=== PATIENT | male | born 1975 | race Caucasian/White ===

== ENCOUNTER → 2021-08-18 08:09 | Outpatient (CLI) | payer OTHER, MEDICAID, SELFPAY ==
[2021-08-18 19:07] LABS: Add Manual Diff / Slide Review NO; Basophils Absolute Auto 0 /uL (0-100); Basophils Percent Auto 0.4 % (0-2); Eosinophils Absolute Auto 100 /uL (0-450); Eosinophils Percent Auto 0.9 % (2-4); Hematocrit 47.4 % (41-53); Hemoglobin 16.3 g/dL (13.5-17.5); Lymphocytes Absolute Auto 1700 /uL (1100-4500); Lymphocytes Percent Auto 17.3 % (25-40); Mean Corpuscular HGB Conc 34.3 % (30-36); Monocytes Absolute Auto 600 /uL (0-900); Monocytes Percent Auto 6.2 % (3-14); Neutrophils Absolute Auto 7300 /uL (1500-7000); Neutrophils Percent Auto 75.2 % (50-75); Platelet Count 194 X10^3/uL (150-400); Red Blood Cell Count 4.94 X10^6/uL (4.5-5.9); Red Cell Distribution Width 13.7 % (11.6-14.8); White Blood Cell Count 9.7 X10^3/uL (4.5-11.0)
[2021-08-18 19:14] LABS: Alanine Aminotransferase 33 IU/L (<50); Albumin 4.4 g/dL (3.5-5.0); Albumin Globulin Ratio 1.4 (1.0-2.8); Alkaline Phosphatase 71 U/L (38-126); Aspartate Aminotransferase 38 IU/L (17-59); BUN Creatinine Ratio 16.9 (6-22); Blood Urea Nitrogen 14 mg/dL (9-20); Calcium 9.6 mg/dL (8.4-10.2); Carbon Dioxide 27 mmol/L (22-32); Chloride 105 mmol/L (98-107); Cholesterol 228 mg/dL (140-199); Estimated Glomerular Filt Rate > 60.0 mL/min (>60); Globulin 3.2 g/dL (1.7-4.1); Glucose 114 mg/dL (70-100); HDL Cholesterol 89 mg/dL (40-60); HEMOLYSIS < 15 (0-50); LDL Cholesterol Calculated 125 mg/dL (<100); Potassium 4.3 mmol/L (3.4-5.1); Sodium 137 mmol/L (137-145); Total Protein 7.6 g/dL (6.3-8.2); Triglycerides 70 mg/dL (35-150)
== END ==
PROVIDERS: PCP Physician Assistant Medical; Visit Provider Physician Assistant Medical
DX: I10 Essential (primary) hypertension (principal); R53.83 Other fatigue
CPT/HCPCS: 80053; 80061; 84443; 85025

== ENCOUNTER 2022-03-08 11:07 | Emergency (ER) | payer OTHER, MEDICAID, SELFPAY ==
[2022-03-08 11:15] VITALS: BP 144/82; PULSE 87; RESP 16; TEMP 37; O2SAT 94; BMI 30.8
--- NOTE | 2022-03-08 11:32 | DI.RAD.S_ITS ---
PROCEDURE: XR CHEST 1V INDICATIONS: chest pain TECHNIQUE: One view of the chest was acquired. COMPARISON: None. FINDINGS: Surgical changes and devices: None. Lungs and pleura: Possible mild basilar atelectasis. Low lung volumes accentuate pulmonary interstitium and heart size. Mediastinum: Mediastinal contours appear normal. Heart size is normal. Bones and chest wall: No suspicious bony lesions. Overlying soft tissues appear unremarkable. IMPRESSION: Possible mild basilar atelectasis accentuated by low lung volumes Approved by: Bc Acuna M.D. on 03/08/2022 at 11:03
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
[2022-03-08 11:40] LABS: Add Manual Diff / Slide Review NO; Basophils Absolute Auto 0 /uL (0-100); Basophils Percent Auto 0.3 % (0-2); Eosinophils Absolute Auto 0 /uL (0-450); Eosinophils Percent Auto 0.1 % (2-4); Hemoglobin 15.6 g/dL (13.5-17.5); Lymphocytes Absolute Auto 2100 /uL (1100-4500); Lymphocytes Percent Auto 15.3 % (25-40); Mean Corpuscular HGB Conc 34.7 % (30-36); Mean Corpuscular Hemoglobin 32.6 PG (26-34); Mean Corpuscular Volume 93.8 fL (80-100); Monocytes Absolute Auto 1000 /uL (0-900); Monocytes Percent Auto 7.6 % (3-14); Neutrophils Absolute Auto 10400 /uL (1500-7000); Neutrophils Percent Auto 76.7 % (50-75); Platelet Count 183 X10^3/uL (150-400); Red Blood Cell Count 4.79 X10^6/uL (4.5-5.9); Red Cell Distribution Width 13.4 % (11.6-14.8); White Blood Cell Count 13.5 X10^3/uL (4.5-11.0)
--- NOTE | 2022-03-08 11:40 | DI.CT.S_ITS ---
PROCEDURE: CT HEAD/BRAIN WO CON INDICATIONS: Right sided head pain TECHNIQUE: Noncontrast 4.5 mm thick angled axial sections acquired from the foramen magnum to the vertex, with coronal and sagittal reformats. For radiation dose reduction, the following was used: automated exposure control, adjustment of mA and/or kV according to patient size. COMPARISON: None. FINDINGS: Image quality: Excellent. CSF spaces: Basal cisterns are patent. No extra-axial fluid collections. Ventricles are normal in size and shape. Brain: No midline shift. No intracranial masses or hemorrhage. Bose-white matter interface is normal. Stippled increased density in both globus pallidus consistent with early senescent mineralization Skull and face: Calvarium and visualized facial bones are intact, without suspicious lesions. Sinuses: Visualized sinuses and mastoids are clear. IMPRESSION: No intracranial hemorrhage or mass effect Approved by: Bc Acuna M.D. on 03/08/2022 at 11:39
--- NOTE | 2022-03-08 11:40 | DI.CT.S_ITS ---
PROCEDURE: CT CHEST ABD PEL W CON INDICATIONS: jump off josefa right sided pain/brusing TECHNIQUE: After the administration of intravenous contrast, 5 mm thick sections acquired from the lung apices to the symphysis. 2.5 mm thick coronal and sagittal reformats were acquired. Additional 7 mm thick coronal maximum intensity projection (MIP) reformats acquired through the lungs. Optional 10-minute delayed imaging may be performed from the kidneys to the bladder. For radiation dose reduction, the following was used: automated exposure control, adjustment of mA and/or kV according to patient size. COMPARISON: None. FINDINGS: Image quality: Excellent. CHEST: Lungs: No pulmonary contusions or lacerations. No acute airspace opacities. Hazy ground-glass opacities are seen scattered in bilateral lung river suggestive of mild pulmonary edema versus pneumonitis. A few scattered atelectasis in posterior and lateral periphery of bilateral lung river are seen. Calcified granuloma is noted in posterior lateral right lower lobe measures 7 mm in size series 3, image 152. No pneumothorax or hemothorax. Central and peripheral airways appear patent and normal in caliber. Mediastinum: No mediastinal hematomas. Heart size is normal. No pericardial effusion. Thoracic aorta and pulmonary arteries demonstrate normal size and enhancement. No mediastinal or hilar adenopathy. Esophagus is normal in caliber. No hiatal hernia. Chest wall: No acute rib fractures. Likely old healed fractures seen involving left posterior lateral 8th, 9th and 10th ribs with chronic appearing deformity. No subcutaneous emphysema. No axillary or supraclavicular adenopathy. Thyroid gland is within normal limits. ABDOMEN: Solid organs: Liver is normal in size , without lacerations. Severe hepatic steatosis is seen. Gallbladder is within normal limits. Biliary system is non-dilated. Pancreas enhances normally, without transection. Spleen is normal in size and enhancement, without lacerations. No adrenal hematomas. Both kidneys enhance normally, without hydronephrosis or lacerations. Peritoneum and bowel: No free fluid or air. Unenhanced bowel loops demonstrate normal wall thickness and caliber. Nodes and vessels: No retroperitoneal or mesenteric adenopathy. Aorta and inferior vena cava are normal in size and enhancement. Miscellaneous: No ventral hernias. PELVIS: Genitourinary: Bladder wall thickness is normal. Miscellaneous: No inguinal hernias or adenopathy. Bones: Pelvic ring and hip joints appear intact. Age indeterminate, likely chronic anterior wedge compression deformity involving superior endplate of T12 is seen with up to 30% loss of T12 vertebral body height anteriorly. Vacuum disc phenomenon is noted at T11-12 level. IMPRESSION: 1. No acute solid organ injury is seen in chest, abdomen or pelvis. 2. Severe hepatic steatosis. 3. Suggestion of mild pulmonary edema versus pneumonitis. No pleural effusion, or pneumothorax. 4. Old healed left posterior medial lower rib fractures. No acute rib fracture is seen. 5. Age indeterminate, likely chronic anterior wedge compression deformity at T12 level as above. No other compression fracture or spondylolisthesis. Pelvic ring is intact. Dictated by: Dario Peña M.D. on 03/08/2022 at 12:49 Approved by: Dario Peña M.D. on 03/08/2022 at 12:55
--- NOTE | 2022-03-08 11:40 | DI.CT.S_ITS ---
PROCEDURE: CT CERVICAL SPINE WO CON INDICATIONS: etoh jump off josefa TECHNIQUE: Noncontrast 3 mm thick sections acquired from the skull base to the T4 level. Sagittal and coronal reformats were then constructed. For radiation dose reduction, the following was used: automated exposure control, adjustment of mA and/or kV according to patient size. COMPARISON: None. FINDINGS: Image quality: Excellent. Bones: No fractures or dislocations. Straightening of normal cervical lordosis is seen. Mild osteoarthritic changes are noted involving dens and anterior arch of C1. Visualized superior ribs are intact. Soft tissues: Prevertebral soft tissues are normal in thickness. No paravertebral hematomas. No apical pneumothoraces. IMPRESSION: No acute cervical spine fracture or dislocation. Dictated by: Dario Peña M.D. on 03/08/2022 at 12:41 Approved by: Dario Peña M.D. on 03/08/2022 at 12:42
[2022-03-08] MEDS: PHENobarbital 65 MG/ML VIAL 130 MG IV (11:46)
[2022-03-08 11:49] LABS: Alanine Aminotransferase 70 IU/L (<50); Albumin 4.6 g/dL (3.5-5.0); Albumin Globulin Ratio 1.1 (1.0-2.8); Alkaline Phosphatase 91 U/L (38-126); Aspartate Aminotransferase 64 IU/L (17-59); BUN Creatinine Ratio 14.1 (6-22); Bilirubin Total 0.6 mg/dL (0.2-1.3); Blood Urea Nitrogen 10 mg/dL (9-20); Calcium 8.8 mg/dL (8.4-10.2); Carbon Dioxide 25 mmol/L (22-32); Chloride 100 mmol/L (98-107); Creatine Kinase 521 U/L (55-170); Estimated Glomerular Filt Rate > 60 mL/min (>60); Globulin 4.1 g/dL (1.7-4.1); Glucose 119 mg/dL (70-100); HEMOLYSIS < 15 (0-50); Lipase 48 U/L (23-300); Magnesium 2.3 mg/dL (1.6-2.3); Potassium 3.9 mmol/L (3.4-5.1); Sodium 138 mmol/L (137-145); Total Protein 8.7 g/dL (6.3-8.2)
[2022-03-08 11:59] LABS: Troponin I < 0.012 ng/mL (0.01-0.034)
[2022-03-08 12:25] LABS: Ethanol (ETOH) 290 mg/dL
[2022-03-08] MEDS: LORazepam 2 MG/ML INJ IV (12:58)
--- NOTE | 2022-03-08 15:43 | CM.SWNOTE ---
Patient is a 46 yo male who was admitted to [facility] ED on 03/08/22 for ETOH detox and Per ED manager of business, [employer] consult placed to assist in medical detox vs social detox pending pt's withdrawal needs. Per ED MD note, pt has hx of alcohol seizures and therefore may not be accepted at social detox. Pt's UDS shows pt admitted with 290 alcohol and still intoxicated. Due to time of day and pt's current intoxication, [employer] cannot meet bedside with pt for assessment. [facility] [employer] called following: [facility] ([phone]) and they requested call after 1600 to determine bed availability. [facility] ([phone]) and requested call back in 20 min as well to determine beds. [facility] ([phone])- pt would need to call for a phone screen first, unsure about bed availabiltiy. [facility]- full [facility]- not taking pt's insurance SW updated manager of business regarding above and manager of business helped already get pt on phone for phone screen with [facility]. LILY Finnegan
[2022-03-08 16:35] LABS: COVID19 -Nasal RAPID Negative (Negative)
--- NOTE | 2022-03-08 17:42 | PC.NURSE ---
Pt was advised multiple times to not leave the ED to go smoke. Pt non compliant with policy. Pt was advised by Dr Portillo that if he is to leave the department again to smoke he will be discharged. Pt left through ambulance bay multiple times and came back into department when an ambulance arrived and the door needed to be opened. Security called. Pt was declined from [facility] due to having seizures in the past. Pt intoxicated with ETOH at this time. Pt states call them back and tell them I dont have seizures. Advised pt that we cannot do that. Pt states he does not have a ride home since he was flown here by a friend private flight. advised he can call a cab which he refused. Pt was given the phone numbers to [facility] and [facility] in [place]. Pt ambulated with steady gait out of ED doors without complication.
--- NOTE | 2022-03-08 17:54 | PC.NURSE ---
pt refused to sign DC instructions
--- NOTE | 2022-03-08 18:00 | PC.NURSE ---
Late Entry 1130: Patient not cooperating with staff. He was asked to stay on his bed due to possible fall risk, as he has repeatedly admitted to drinking heavily prior to arrival. Patient declining to stay seated or lay down. He took off all monitoring equipment. He is repeatedly asking for something to calm him down. Shortly thereafter, patient attempted to leave ED with his IV still in place. He was stopped by chargerIlda and redirected back to his bed. Went in to room and reminded him of policy and that if he attempted to sneak out , I would need to call security to bring him back and remove his IV. Patient agrees to stay in room. A few minutes later, patient walking out of room and had apparently removed his own IV. Stated that he wanted to leave to smoke. Advised patient he is free to leave, but he will be discharged from ED and will have to check in again if he would like to be seen. Patient agrees to stay and a new IV line is initiated. Patient lying on bed and cooperating while waiting IV Ativan to be given. He appears to rest and is moved to a different room at this time. Patient attempted to leave several more times, going in and out of ambulance bay door despite being reminded by staff that he is not allowed to exit and re-enter a closed unit. His IV was removed at this time. However, he continued to walk around unit without mask and repeatedly asking when he can go to detox and where detox was. After continuing to exit through the ambulance doors and re-enter, he was discharged from ED and ambulated out with steady gait with all of his belongings.
[2022-03-08 18:44] LABS: UR Morphine/Opiate cutoff 300 Negative (Negative); Ur Creatinine Normal (Normal); Ur Specific Gravity Normal (Normal); Urine Amphetamines Negative (Negative); Urine Barbiturates Negative (Negative); Urine Cocaine Negative (Negative); Urine MDMA Negative (Negative); Urine Methamphetamines Negative (Negative); Urine Phencyclidine Negative (Negative); Urine pH Normal (Normal)
[2022-03-08 18:45] LABS: Urine Benzodiazepines Positive (Negative); Urine Methadone Negative (Negative); Urine Oxycodone Negative (Negative); Urine Tricyclic Antidepressant Negative (Negative)
== END 2022-03-08 17:52 | disposition home or self-care (01) ==
PROVIDERS: Emergency Provider Emergency Medicine; PCP Physician Assistant Medical
DX: R07.89 Other chest pain (principal); R51.9 Headache, unspecified; F10.129 Alcohol abuse with intoxication, unspecified; Y90.8 Blood alcohol level of 240 mg/100 ml or more; W16.42XA Fall into unspecified water causing other injury, initial encounter
CPT/HCPCS: 36415; 70450; 71045; 71260; 72125; 74177; 80053; 80305; 80320; 82550; 82553; 83690; 83735; 84484; 85025; 87635; 93005; 96374; 96375; 99284; C9803; J2060; J2560; Q9967

== ENCOUNTER → 2023-12-31 09:59 | Outpatient (CLI) | payer OTHER, MEDICAID, SELFPAY ==
[2023-12-31 20:01] LABS: Alanine Aminotransferase 57 IU/L (<50); Albumin 4.3 g/dL (3.5-5.0); Albumin Globulin Ratio 1.4 (1.0-2.8); Alkaline Phosphatase 69 U/L (38-126); Aspartate Aminotransferase 80 IU/L (17-59); BUN Creatinine Ratio 19.6 (6-22); Bilirubin Total 0.7 mg/dL (0.2-1.3); Blood Urea Nitrogen 18 mg/dL (9-20); Calcium 9.4 mg/dL (8.4-10.2); Carbon Dioxide 27 mmol/L (22-32); Chloride 107 mmol/L (98-107); Cholesterol 206 mg/dL (140-199); Estimated Glomerular Filt Rate > 60 mL/min (>60); Glucose 102 mg/dL (70-100); HDL Cholesterol 54 mg/dL (40-60); HEMOLYSIS < 15 (0-50); LDL Cholesterol Calculated 138 mg/dL (<100); Potassium 4.4 mmol/L (3.4-5.1); Sodium 138 mmol/L (137-145); Total Protein 7.3 g/dL (6.3-8.2); Triglycerides 68 mg/dL (35-150)
[2023-12-31 20:11] LABS: Add Manual Diff / Slide Review NO; Basophils Absolute Auto 100 /uL (0-100); Basophils Percent Auto 0.9 % (0-2); Eosinophils Absolute Auto 100 /uL (0-450); Eosinophils Percent Auto 2.1 % (2-4); Hematocrit 45.1 % (41-53); Hemoglobin 15.4 g/dL (13.5-17.5); Lymphocytes Absolute Auto 1700 /uL (1100-4500); Lymphocytes Percent Auto 26.3 % (25-40); Mean Corpuscular HGB Conc 34.2 % (30-36); Mean Corpuscular Hemoglobin 31.7 PG (26-34); Mean Corpuscular Volume 92.6 fL (80-100); Monocytes Absolute Auto 400 /uL (0-900); Monocytes Percent Auto 6.9 % (3-14); Neutrophils Absolute Auto 4100 /uL (1500-7000); Neutrophils Percent Auto 63.8 % (50-75); Platelet Count 194 X10^3/uL (150-400); Red Blood Cell Count 4.86 X10^6/uL (4.5-5.9); Red Cell Distribution Width 12.8 % (11.6-14.8); White Blood Cell Count 6.4 X10^3/uL (4.5-11.0)
[2023-12-31 20:14] LABS: Hemoglobin A1C% w Est Avg Glu 5.1 % (4.0-6.0)
[2023-12-31 20:41] LABS: Thyroid Stimulating Hormone 2.34 uIU/mL (0.47-4.68)
== END ==
PROVIDERS: PCP Family Medicine; Visit Provider Family Medicine
DX: E78.2 Mixed hyperlipidemia (principal); R79.89 Other specified abnormal findings of blood chemistry; I10 Essential (primary) hypertension; R73.9 Hyperglycemia, unspecified
CPT/HCPCS: 80053; 80061; 83036; 84443; 85025

== ENCOUNTER 2024-02-21 09:27 | Day surgery (SDC) | payer OTHER, MEDICAID, SELFPAY ==
--- NOTE | 2024-02-21 | PATH_ITS ---
[facility] Accession Number: [id number] No. of containers..01 Tissue . 01 Material submitted: . colon - TRANSVERSE COLON POLYP . 01 Diagnosis: TRANSVERSE COLON POLYP: Tubular adenoma. MRV 02/26/2024 1339 Local . 01 Electronically signed: . Adeel Ferris MD, PhD, Pathologist NPI- [id number] . 01 Gross description: . Received in formalin, labeled with two patient identifiers and transverse colon polyp, and consists of a 0.4 x 0.2 x 0.1 cm, white, polypoid tissue which is entirely submitted in cassette A1. ([id number]) /FRR 02/23/2024 1120 Local . 01 Pathologist provided ICD-10: D12.3 . 01 CPT . 042956 Specimen Comment: A courtesy copy of this report has been sent to [phone] Performed at: [address] [facility] [address], [place], [place] [id number] MD Jake Bazzi MD Phone: [phone]
[2024-02-21 10:36] VITALS: BP 122/82; PULSE 62; RESP 16; TEMP 36.6; O2SAT 98
[2024-02-21 10:44] VITALS: BMI 32.1
[2024-02-21] MEDS: LACTATED RINGERS 1,000 ML 42 ML IV (10:45)
--- NOTE | 2024-02-21 10:46 | PM.HP.1 ---
History of Present Illness History of Present Illness Date Patient Seen: 02/21/24 Time Patient Seen: 10:46 Chief complaint: SDC Narrative: Mk is a 48-year-old man here for a screening colonoscopy. He has never had 1 before. [facility] Medical History Depression PTSD (post-traumatic stress disorder) Family History Father Stroke Social History marital status: details: 17 yo son Previous occupational history: administrative intern Smoking Status: Former smoker alcohol intake: current substance use type: marijuana (stopped tobacco, MJ and etoh 2 months ago . [facility] 08/2022) additional social history: care home for 1 yr, divorce, bankruptcy starting new job soon at [employer]. stopped tobacco, MJ and etoh 2 months ago Meds Home Medications and Allergies Home Medications Medication Instructions Recorded Confirmed Type peg 3350-electrolytes 236 240 ml PO Q10M #4,000 mL 01/18/24 01/25/24 Rx gram-22.74 gram-6.74 gram-5.86 gram solution (Golytely) Allergies Allergy/AdvReac Type Severity Reaction Status Date / Time Penicillins Allergy Intermediate swelling Verified 01/25/24 16:08 Exam Vital Signs (past 8 hours): - 02/21/24 10:36 Temperature 98 F Pulse Rate 62 Respiratory Rate 16 Blood Pressure 122/82 Pulse Oximetry 98 Oxygen Delivery Method Room Air Oxygen Delivery Method Room Air Const General: healthy appearing Resp Effort & Inspection: normal respiratory effort Assessment & Plan Assessment and plan (1) Colon cancer screening: Status: Acute Plan We reviewed the risks and benefits of colonoscopy and he would like to proceed. Time-Based Coding :: [TOTAL MINUTES] spent with patient and on the chart (including review of chart, obtaining history, exam, reviewing outside data, placing orders, documenting exam and treatment plan, and counseling patient) on [DATE].
--- NOTE | 2024-02-21 11:55 | PM.OP.COLON ---
Operative Date/Time/Diagnoses Date of procedure: 02/21/24 Time of procedure: 11:55 Pre-op diagnosis: Colon cancer screening Post-op diagnosis: same Procedure & Clinicians Study performed: Colonoscopy Same procedure as scheduled: Yes Surgeon: Fidel Feng Procedure Notes Procedure in detail: Surgeon: Fidel Feng MD Anesthesia: Isamar Ramos MD Procedure: The patient was brought to the endoscopy suite, placed in left lateral decubitus position. The patient was connected to monitoring devices. A time-out was performed. Sedation was administered. Once the patient was adequately sedated, a digital rectal exam was performed and was normal. The scope was then inserted and advanced to the cecum where the appendiceal orifice was identified and photographed. The scope was then slowly withdrawn over greater than 6 minutes. The mucosa was thoroughly inspected. No abnormalities were found. The scope was retroflexed in the rectum. No abnormalities were seen. The scope was straightened and removed. The patient was awakened and brought to recovery. Scope withdrawal time: 9 minutes Sedation time: 12 minutes EBL: 0 Findings: Normal colon Post-procedure Recommendations: Colonoscopy in 10 years Disposition: PACU
[2024-02-21 11:57] VITALS: BP 114/68; PULSE 66; RESP 14; TEMP 36.3; O2SAT 96
[2024-02-21 12:00] VITALS: BP 111/74; PULSE 68; RESP 20; O2SAT 96
[2024-02-21 12:01] VITALS: BP 118/70; PULSE 63; RESP 21; O2SAT 96
[2024-02-21 12:11] VITALS: BP 121/82; PULSE 58; RESP 16; O2SAT 98
== END 2024-02-21 12:27 | disposition home or self-care (01) ==
PROVIDERS: PCP Family Medicine; Referring Provider Surgery; Visit Provider Surgery
PROC: 0DJD8ZZ Inspection of Lower Intestinal Tract, Via Natural or Artificial Opening Endoscopic (ICD-10-PCS; CPT 45378; principal; 2024-02-21 11:00)
DX: Z12.11 Encounter for screening for malignant neoplasm of colon (principal); D12.3 Benign neoplasm of transverse colon
CPT/HCPCS: 45385; J2704

== ENCOUNTER → 2024-03-05 11:05 | Outpatient (CLI) | payer OTHER, MEDICAID, SELFPAY ==
[2024-03-05 20:15] LABS: PTT Partial Thromboplastin Tim 35 SECONDS (25.1-36.5)
[2024-03-05 20:49] LABS: HEMOLYSIS < 15 (0-50); Iron 59 ug/dL (49-181)
[2024-03-05 20:50] LABS: Alanine Aminotransferase 35 IU/L (<50); Albumin 4.6 g/dL (3.5-5.0); Albumin Globulin Ratio 1.4 (1.0-2.8); Alkaline Phosphatase 97 U/L (38-126); Aspartate Aminotransferase 64 IU/L (17-59); Bilirubin Total 0.6 mg/dL (0.2-1.3); Globulin 3.2 g/dL (1.7-4.1); HEMOLYSIS 29 (0-50); Total Protein 7.8 g/dL (6.3-8.2)
[2024-03-05 21:22] LABS: Ferritin 54 ng/mL (18-464)
[2024-03-06 03:07] LABS: Percent Iron Saturation 18 % (20-50); Total Iron Binding Capacity 332 ug/dL (261-462); Transferrin 284 mg/dL (206-381)
[2024-03-07 00:10] LABS: HBsAg Screen Negative (Negative); Hepatitis A Antibody IgM Negative (Negative); Hepatitis B Core Antibody IgM Negative (Negative); Hepatitis C Antibody Non Reactive (Non Reactive)
== END ==
PROVIDERS: PCP Family Medicine; Visit Provider Family Medicine
DX: R79.89 Other specified abnormal findings of blood chemistry (principal); F10.20 Alcohol dependence, uncomplicated; E78.2 Mixed hyperlipidemia; I10 Essential (primary) hypertension; R73.9 Hyperglycemia, unspecified; E88.89 Other specified metabolic disorders
CPT/HCPCS: 80074; 80076; 82728; 83540; 83550; 85610; 85730

== ENCOUNTER → 2024-04-29 16:13 | Outpatient (CLI) | payer OTHER, MEDICAID, SELFPAY | PROVIDERS: PCP Family Medicine; Visit Provider Physician Assistant Medical | DX: R10.30 Lower abdominal pain, unspecified (principal); R19.04 Left lower quadrant abdominal swelling, mass and lump | CPT/HCPCS: 81002; 87086 ==

== ENCOUNTER → 2024-05-07 10:52 | Outpatient (CLI) | payer OTHER, MEDICAID, SELFPAY ==
--- NOTE | 2024-05-07 10:53 | DI.US.S_ITS ---
PROCEDURE: US ABDOMEN LIMITED INDICATIONS: pain and indurated mass at LLQ TECHNIQUE: Real-time focused scanning was performed of the left lower quadrant, with image documentation with and without Valsalva maneuver. COMPARISON: None. FINDINGS: No sonographic abnormalities visualized in the area of clinical concern left lower quadrant with and without Valsalva maneuver. IMPRESSION: No sonographic abnormality in the area of clinical concern, specifically no sonographic evidence of mass or hernia. Approved by: Hien Alfredo M.D.,Ph.D. on 05/07/2024 at 13:35
== END ==
PROVIDERS: PCP Family Medicine; Referring Provider Physician Assistant Medical; Visit Provider Physician Assistant Medical
DX: R19.04 Left lower quadrant abdominal swelling, mass and lump (principal); R10.9 Unspecified abdominal pain
CPT/HCPCS: 76705

== ENCOUNTER → 2024-06-09 14:23 | Outpatient (CLI) | payer OTHER, MEDICAID, SELFPAY ==
[2024-06-09 18:41] LABS: Add Manual Diff / Slide Review NO; Basophils Absolute Auto 0 /uL (0-100); Basophils Percent Auto 0.6 % (0-2); Eosinophils Absolute Auto 100 /uL (0-450); Eosinophils Percent Auto 1.3 % (2-4); Hematocrit 46.6 % (41-53); Hemoglobin 15.8 g/dL (13.5-17.5); Lymphocytes Absolute Auto 1800 /uL (1100-4500); Lymphocytes Percent Auto 24.2 % (25-40); Mean Corpuscular HGB Conc 33.9 % (30-36); Mean Corpuscular Hemoglobin 31.8 PG (26-34); Mean Corpuscular Volume 93.6 fL (80-100); Monocytes Absolute Auto 400 /uL (0-900); Monocytes Percent Auto 5.9 % (3-14); Neutrophils Absolute Auto 5000 /uL (1500-7000); Platelet Count 216 X10^3/uL (150-400); Red Blood Cell Count 4.98 X10^6/uL (4.5-5.9); Red Cell Distribution Width 13.2 % (11.6-14.8); White Blood Cell Count 7.4 X10^3/uL (4.5-11.0)
[2024-06-09 18:48] LABS: Alanine Aminotransferase 56 IU/L (<50); Albumin 4.2 g/dL (3.5-5.0); Albumin Globulin Ratio 1.3 (1.0-2.8); Alkaline Phosphatase 90 U/L (38-126); Aspartate Aminotransferase 45 IU/L (17-59); Bilirubin Total 0.6 mg/dL (0.2-1.3); Bilirubin Unconjugated 0.2 mg/dL (0.0-1.1); Gamma Glutamyl Transpeptidase 102 U/L (15-73); Globulin 3.3 g/dL (1.7-4.1); HEMOLYSIS 31 (0-50); Total Protein 7.5 g/dL (6.3-8.2)
[2024-06-09 18:51] LABS: Alanine Aminotransferase 56 IU/L (<50); Albumin 4.1 g/dL (3.5-5.0); Albumin Globulin Ratio 1.2 (1.0-2.8); Alkaline Phosphatase 85 U/L (38-126); Aspartate Aminotransferase 43 IU/L (17-59); BUN Creatinine Ratio 17.8 (6-22); Bilirubin Total 0.5 mg/dL (0.2-1.3); Blood Urea Nitrogen 18 mg/dL (9-20); Calcium 9.6 mg/dL (8.4-10.2); Carbon Dioxide 27 mmol/L (22-32); Chloride 103 mmol/L (98-107); Estimated Glomerular Filt Rate > 60 mL/min (>60); Globulin 3.3 g/dL (1.7-4.1); Glucose 103 mg/dL (70-100); HEMOLYSIS < 15 (0-50); Potassium 4.4 mmol/L (3.4-5.1); Sodium 135 mmol/L (137-145); Total Protein 7.4 g/dL (6.3-8.2)
[2024-06-11 05:28] LABS: Ceruloplasmin 20.4 mg/dL (16.0-31.0)
== END ==
PROVIDERS: Physician Assistant Medical; PCP Family Medicine; Visit Provider Family Medicine
DX: E66.9 Obesity, unspecified (principal); E88.89 Other specified metabolic disorders; R79.89 Other specified abnormal findings of blood chemistry; F10.20 Alcohol dependence, uncomplicated; R73.9 Hyperglycemia, unspecified; D36.9 Benign neoplasm, unspecified site; R10.9 Unspecified abdominal pain; R19.00 Intra-abdominal and pelvic swelling, mass and lump, unspecified site
CPT/HCPCS: 80053; 80076; 82390; 82977; 85025

== ENCOUNTER → 2025-01-14 13:33 | Outpatient (CLI) | payer OTHER, SELFPAY ==
[2025-01-14 19:32] LABS: Add Manual Diff / Slide Review NO; Hematocrit 42.3 % (41-53); Hemoglobin 14.6 g/dL (13.5-17.5); Lymphocytes Absolute Auto 1300 /uL (1100-4500); Mean Corpuscular HGB Conc 34.5 % (30-36); Mean Corpuscular Hemoglobin 33.1 PG (26-34); Mean Corpuscular Volume 95.9 fL (80-100); Platelet Count 298 X10^3/uL (150-400)
[2025-01-14 19:38] LABS: HEMOLYSIS 20 (0-50); Iron 87 ug/dL (49-181)
[2025-01-14 19:43] LABS: Gamma Glutamyl Transpeptidase 87 U/L (15-73); Lipase 400 U/L (23-300)
[2025-01-14 19:48] LABS: Alanine Aminotransferase 77 IU/L (<50); Albumin 3.8 g/dL (3.5-5.0); Albumin Globulin Ratio 1.3 (1.0-2.8); Alkaline Phosphatase 77 U/L (38-126); Blood Urea Nitrogen 14 mg/dL (9-20); Calcium 9.2 mg/dL (8.4-10.2); Carbon Dioxide 21 mmol/L (22-32); Chloride 107 mmol/L (98-107); Cholesterol 180 mg/dL (140-199); Estimated Glomerular Filt Rate > 60 mL/min (>60); Globulin 3.0 g/dL (1.7-4.1); Glucose 92 mg/dL (70-99); HDL Cholesterol 47 mg/dL (40-60); HEMOLYSIS < 15 (0-50); Potassium 4.3 mmol/L (3.4-5.1); Sodium 138 mmol/L (137-145); Total Protein 6.8 g/dL (6.3-8.2); Triglycerides 91 mg/dL (35-150)
[2025-01-14 20:00] LABS: Percent Iron Saturation 31 % (20-50); Total Iron Binding Capacity 285 ug/dL (261-462); Transferrin 227 mg/dL (206-381)
[2025-01-14 20:21] LABS: Ferritin 187 ng/mL (18-464)
== END ==
PROVIDERS: Physician Assistant; PCP Family Medicine; Visit Provider Family Medicine
DX: F10.20 Alcohol dependence, uncomplicated (principal); K70.9 Alcoholic liver disease, unspecified; R12 Heartburn; F41.1 Generalized anxiety disorder; E88.89 Other specified metabolic disorders; R10.30 Lower abdominal pain, unspecified; K76.0 Fatty (change of) liver, not elsewhere classified
CPT/HCPCS: 80053; 80061; 82728; 82977; 83540; 83550; 83690; 85025